=== PATIENT | female | born 1965 | race Caucasian/White ===

== ENCOUNTER 2018-04-03 21:22 | Emergency (ER) | payer OTHER ==
[~2018-04-03] VITALS: Ht 162.6 cm; Wt 49.9 kg
[2018-04-03] MEDS ORDERED: TRAZODONE HCL100 MG (21:31)
[2018-04-03] MEDS ORDERED: WELLBUTRIN SR100 MG (21:32)
== END 2018-04-04 10:18 | disposition home or self-care (01) ==
LOC: ER 21:22
DX: G40.89 Other seizures (principal)
CPT/HCPCS: 70552